=== PATIENT | male | born 1990 | race Caucasian/White ===

== ENCOUNTER 2024-02-06 20:36 | Emergency (ER) | payer BC, SELFPAY ==
[2024-02-06 20:37] VITALS: BMI 25.9
[2024-02-06 20:38] VITALS: BP 129/98
[2024-02-06 20:43] VITALS: BP 129/98
--- NOTE | 2024-02-06 20:43 | ED.GENMED ---
History of Present Illness
General
Chief Complaint: Breathing Problem
Source: patient
Exam Limitations: none
Time Seen by Provider: 02/06/24 20:37
Nursing documentation reviewed up to this point in time: agreed with
History of Present Illness
History of Present Illness:
Patient is a 33-year-old male who identifies as female and presents via EMS with a DuoNeb treatment going with shortness of breath. Patient has been cleaning there girlfriend's apartment which is very [place] and dirty. Patient has been using
Benadryl when he gets congested and wheezing. Patient states this latest episode started around 1230 1:00 today. Patient took a Benadryl and it seemed to get worse. Patient has had a nonproductive cough with this. Patient denies chest pain.
Patient denies fever or chills. Patient admits to mild nasal congestion. Patient denies any GI or symptoms. Patient does not smoke. Patient's father has asthma.
Past History
Past History
ED Past Medical History: None
Social History
Tobacco: Non-smoker
Family History
Family History: Asthma
Review of Systems
Review of Systems
All Other Systems: ROS reviewed and negative except as documented in HPI and ROS
Constitutional: Denies fever, fatigue or chills
EENT: Reports no symptoms
Respiratory: Reports cough and trouble breathing
Cardiac: Reports no symptoms
ABD/GI: Reports no symptoms
: Reports no symptoms
Musculoskeletal: Reports no symptoms
Skin: Reports no symptoms
Neurological: Reports no symptoms
Hematologic/Lymphatic: Reports no symptoms
Phy Exam
Physical Exam
Physical Exam:
Physical Exam
General: mild to moderate distress, alert and appropriate, well nourished, well hydrated
HENT: Normocephalic, supple with no lymphadenopathy, no thyromegaly
Eyes: Clear sclera, conjuctiva without injection
Heart: Regular rhythm and rate. No S3, S4. No murmur. No NVD
Lungs: No respiratory distress, no stridor, lung sounds are coarse with scattered expiratory wheezing but equal bilaterally, chest wall symmetrical and nontender
Abdomen: Soft, nontender, no organomegaly, no CVA tenderness, BS good
Neuro: Alert and oriented x 3, CN II - XII intact, no motor focality, no cerebellar dysfunction
Skin: no rash
Psychiatric: well kept. interactive and cooperative
Extremities: No edema, cyanosis, tenderness, Good and equal peripheral pulses.
Course
Orders/Labs/Results
Orders:
Orders
02/06/24 20:42
Ipratropium/Albuterol Sulfate [Duoneb] 3 ml INH R NOW STA
Prednisone [Deltasone] 60 mg PO NOW STA
Vital Signs
Initial and Last Documented VS:
Initial Vital Signs
Temp Pulse Resp BP Pulse Ox
98.6 F 125 20 129/98 100
02/06/24 20:38 02/06/24 20:38 02/06/24 20:38 02/06/24 20:38 02/06/24 20:38
Last Documented Vital Signs
Temp Pulse Resp BP Pulse Ox
98.6 F 100 12 120/76 97
02/06/24 20:38 02/06/24 23:00 02/06/24 23:00 02/06/24 21:00 02/06/24 23:00
*Pulse Oximetry
Patient hypoxic: no
*EKG
Interpreted by ED Provider?: NA
*Dictating Machine Transcriber Interpretation
Rate: Dictating Machine Transcriber- N/A
*Critical Care Note
Total Time (30-74mins, 75-104mins- exclusive of procedures): Not Applicable
Update Note
Update Note:
Patient feeling better. Patient will be discharged.
ED Attending Note
-
Portions of this chart may have been created with voice recognition software.� Occasional wrong word or��sound alike� substitutions may have occurred due to the inherent limitations of voice recognition software.
Discharge Plan
Departure
Patient Disposition: Home (Routine Discharge)
Date of Disposition: 02/06/24
Time of Disposition: 23:26
Patient with high blood pressure during this ER visit?: No
Condition: Good
Covid-19: Not Applicable
Discharge Problem:
Reactive airway disease
Instructions: Asthma, Adult (DC)
Prescriptions:
New
prednisone 20 mg tablet
20 mg PO BID Qty: 10 0RF
albuterol sulfate 90 mcg/actuation HFA aerosol inhaler
2 puff inhalation Q6H PRN (Reason: shortness of breath or wheezing) Qty: 8.5 0RF
Referrals:
FRED HURLEY DC [Family Provider] -
Interventions
Interventions:
*Risk Screen - Suicide Last Done: 02/06/24 20:38
*General Assessment Last Done: 02/06/24 20:38
*Neglect/Abuse Screening Last Done: 02/06/24 20:38
ED- Fall Risk Assessment Last Done: 02/06/24 21:15
*ED COVID-19 Vaccine History Last Done: 02/06/24 20:38
ED- Cardiac Assessment Last Done: 02/06/24 21:15
ED- Pulmonary Assessment Last Done: 02/06/24 21:15
Discharge Date and Time
Print Language: LAO
[2024-02-06] MEDS: DUONEB 3 ML INH (20:55)
[2024-02-06] MEDS: DELTASONE 60 MG PO (20:55)
[2024-02-06 21:00] VITALS: BP 120/76
== END 2024-02-06 23:39 | disposition home or self-care (01) ==
LOC: EMR 20:36
PROVIDERS: EMERGENCY PHYSICIAN Emergency Medicine; FAMILY PHYSICIAN Chiropractor Neurology
DX: J45.909 Unspecified asthma, uncomplicated (principal)
CPT/HCPCS: 99283; 94640